=== PATIENT | female | born 1950 | race Caucasian/White ===

== ENCOUNTER 2022-06-01 09:18 | Observation (INO) | payer MEDICARE, OTHER ==
[~2022-06-01] VITALS: Ht 170.2 cm; Wt 57.0 kg
[2022-06-01 09:46] LABS: BASOPHILS ABSOLUTE AUTO 0.04 K/mm3 (0.00-0.23); BASOPHILS PERCENT AUTO 1 % (0-2); EOSINOPHILS ABSOLUTE AUTO 0.16 K/mm3 (0.00-0.68); EOSINOPHILS PERCENT AUTO 2 % (0-6); Hematocrit 38.9 % (33.0-51.0); Hemoglobin 13.3 g/dL (11.5-16.0); IMMATURE GRAN ABSOLUTE AUTO 0.02 K/mm3 (0.00-0.10); IMMATURE GRAN PERCENT AUTO 0 % (0-1); LYMPHOCYTES ABSOLUTE AUTO 1.42 K/mm3 (0.84-5.20); LYMPHOCYTES PERCENT AUTO 20 % (21-46); MONOCYTES ABSOLUTE AUTO 0.73 K/mm3 (0.16-1.47); MONOCYTES PERCENT AUTO 10 % (4-13); Mean Corpuscular HGB 32.4 pg (26.0-34.0); Mean Corpuscular HGB Conc 34.2 g/dL (31.5-36.5); Mean Corpuscular Volume 95 fL (80-100); Mean Platelet Volume 8.5 fL (9.1-12.4); NEUTROPHILS ABSOLUTE AUTO 4.88 K/mm3 (1.96-9.15); NEUTROPHILS PERCENT AUTO 67 % (41-73); Platelet Count 236 K/mm3 (150-400); RDW Coefficient Variation 13.4 % (11.7-14.2); RDW Standard Deviation 46.8 fL (35.1-46.3); White Blood Cell Count 7.25 K/mm3 (4.00-11.30)
[2022-06-01 10:05] LABS: Albumin, Blood 3.2 g/dL (3.4-5.0); Albumin/Globulin Ratio 0.9 (0.8-1.8); Bilirubin, Total 0.5 mg/dL (0.1-1.0); Bun/Creatinine Ratio 22.4 (12.0-20.0); Calcium, Blood 9.1 mg/dL (8.5-10.1); Creatinine, Blood 0.89 mg/dL (0.40-1.00); Globulin, Blood 3.7 g/dL (2.2-4.0); Potassium, Blood 3.8 mmol/L (3.5-5.5); Total Protein, Blood 6.9 g/dL (6.4-8.2)
[2022-06-01 10:58] LABS: Magnesium, Blood 2.2 mg/dL (1.6-2.4)
[2022-06-01 10:59] LABS: Thyroid Stimulating Hormone 2.33 uIU/mL (0.360-4.800)
--- NOTE | 2022-06-01 17:17 | NUR ---
PT ARRIVED FROM ER WITH CARDIZEM DRIP STOPPED, PT NOTED TO BY NON-SYMPTOMATIC BRADYCARDIC ON ARRIVAL. PT A/O X4, ANSWERING QUESTIONS APPROPRIATELY IN FULL SENTENCES. DENIES CP OR SOB. INDEPENDANT IN THE ROOM, UP TO BATHROOM WITHOUT ISSUES. SINUSBRADY NOTED ON MONITOR AT THE TIME OF THIS NOTE, CONTINUES TO REST W/O PAIN. SHE IS READING QUIETLY IN BED. NADN. THORNE.
[2022-06-02 04:18] LABS: CHOL/HDL RATIO 3.4; Cholesterol 192 mg/dL (50-200); HDL Cholesterol 57 mg/dL (>39); Low Density Lipoprotein Chol 114 mg/dL (0-110); Triglycerides 103 mg/dL (30-160); Very Low Density Lipoprot Chol 20 mg/dL (6-32)
--- NOTE | 2022-06-02 04:23 | NUR ---
SHIFT SUMMARY: PT ALERT AND ORIENTED X4, ABLE TO FOLLOW COMMANDS AND MAKE NEEDS KNOWN. BP STABLE, AFEBRILE, SATURATIONS >98% ON RA. RESPIRATIONS EVEN AND UNLABORED. LUNG SOUNDS CLEAR THROUGHOUT. PT REMAINS IN SR, HR AVERAGE BETWEEN 50-60 BMP, TOUCHING 47-50 BPM WHILE SLEEPING, EVENING DOSE OF METOPROLOL HELD. NO COMPLAINTS OF CP/PRESSURE. PULSES EQUAL AND STRONG THROUGHOUT. PT ABLE TO AMBULATE IND TO AND FROM BATHROOM. NO BM THIS SHIFT. PT SLEPT ON AND OFF THROUGHOUT THE NIGHT. BED IN LOW, CALL LIGHT IN REACH, WILL REPORT TO ONCOMING RN.
[2022-06-02] MEDS ORDERED: ELIQUIS5 M2 PO (10:51)
[2022-06-02] MEDS ORDERED: METO25ER PO (10:52)
--- NOTE | 2022-06-02 12:20 | NUR ---
PT EXPRESSED UNDERSTANDING OF DC TEACHING, SHE DENIES FURTHER NEEDS
== END 2022-06-02 12:48 | disposition home or self-care (01) ==
LOC: ER 09:18 → ERHOLD 09:19 → PCU 09:19
PROVIDERS: Nurse Practitioner Acute Care; Physician Assistant; Student in an Organized Health Care Education/Training Program; ADMIT Internal Medicine
DX: I48.91 Unspecified atrial fibrillation (principal); I47.1 Supraventricular tachycardia; F41.9 Anxiety disorder, unspecified; R07.89 Other chest pain; R42 Dizziness and giddiness; E03.9 Hypothyroidism, unspecified; E78.00 Pure hypercholesterolemia, unspecified; J90 Pleural effusion, not elsewhere classified; I08.1 Rheumatic disorders of both mitral and tricuspid valves; Z87.891 Personal history of nicotine dependence
CPT/HCPCS: 36415; 71045; 80053; 80061; 83735; 83880; 84443; 84484; 85025; 93005; 93010; 93246; 93306; 96372; A9270; G0378; J1650; J7030